=== PATIENT | male | born 1975 | race Caucasian/White ===

== ENCOUNTER 2018-12-07 14:34 | Emergency (ER) | payer MEDICARE, MEDICAID ==
[2018-12-07] MEDS ORDERED: ACETAMINOPHEN 325 MG TAB PO ONE (14:48)
--- NOTE | 2018-12-07 14:54 | Emergency Department Record ---
History of Present Illness - General Chief complaint: Extremity Problem Stated complaint: RT WRIST PAIN Time Seen by Provider: 12/07/18 14:42 Source: Patient Mode of Arrival: Ambulatory Limitations: No limitations - History of Present Illness Initial comments: The patient is here due to R wrist pain. He has had some pain for about 2 months in the R wrist since falling on the arm. The patient has seen his PCP for it and had 2 sets of neg xrays. An hour ago he was just pulling up his pants and he felt a "snap" and pain in the wrist. Since he has not been able to move the wrist without severe pain. The patient denies any trauma today. MD Complaint: Extremity pain Onset/Timin -: Hour(s) Location: Right, Other History of Same: No Radiation: None Severity scale (1-10): 8 Quality: Burning, Other Consistency: Constant Improves with: Immobilization Worsens with: Exertion, Palpation Associated Symptoms: Denies other symptoms - Related Data Home Medications Medication Instructions Recorded Confirmed Last Taken Hydrochlorothiazide [Hctz] 25 mg PO DAILY 12/07/18 12/07/18 Unknown Levothyroxine Sodium 50 mcg PO DAILY 12/07/18 12/07/18 Unknown Lisinopril 10 mg PO DAILY 12/07/18 12/07/18 Unknown Metoprolol Succinate [Toprol Xl] 25 mg PO DAILY 12/07/18 12/07/18 Unknown Allergies Allergy/AdvReac Type Severity Reaction Status Date / Time cortisone Allergy HIVES Verified 12/07/18 14:45 gabapentin [From Neurontin] Allergy BEHAVIORAL Verified 12/07/18 14:45 CHANGES Travel Screening - Travel/Exposure Within Last 30 Days Have you traveled within the last 30 days?: No Review of Systems Constitutional: Denies: Chills, Fever Eyes: Denies: Eye discharge ENT: Denies: Congestion Respiratory: Denies: Cough, Dyspnea Past Medical History - SOCIAL HISTORY Smoking Status: Former smoker Alcohol Use: None Drug Use: None - RESPIRATORY Hx Respiratory Disorders: No - CARDIOVASCULAR Hx Cardio Disorders: Yes Hx Hypertension: Yes - NEURO Hx Neuro Disorders: No - GI Hx GI Disorders: No - Hx Genitourinary Disorders: No - ENDOCRINE Hx Endocrine Disorders: No - MUSCULOSKELETAL Hx Musculoskeletal Disorders: Yes - PSYCH Hx Psych Problems: No - HEMATOLOGY/ONCOLOGY Hx Hematology/Oncology Disorders: No Family Medical History Any Significant Family History?: No Physical Exam - General General Appearance: Alert, Oriented x3, Cooperative, No acute distress - Head Head exam: Atraumatic, Normocephalic, Normal inspection - Eye Eye exam: Normal appearance, PERRL, EOMI - Extremities Extremities exam: Normal capillary refill, Tenderness (There is diffuse dorsal wrist tenderness.), Other (The R hand is NVI with normal pulses.). negative: Normal inspection (There may be very slight swelling to the dorsal wrist. ), Full ROM (There is decreased active and passive ROM due to pain but the patient is able to flex and extend the wrist and fingers with discomfort.) Course Vital Signs 12/07/18 14:39 Temperature 97.8 F Pulse Rate 63 Respiratory 20 Rate Blood Pressure 165/97 Pulse Ox 97 - Reevaluation(s) Reevaluation #1: The patient is doing very well at this time. I did discuss the neg xrays with the patient and the need for F/U. He is to wear a wrist splint and he has an appointment with a specialist on Tuesday. 12/07/18 15:35 Medical Decision Making - Data Complexity MDM Data: X-Ray Ordered and/or Reviewed - Radiology Data Radiology results: Report reviewed (R wrist: Neg per Rad.) Disposition Disposition: Discharge Clinical Impression: Wrist pain, right Disposition: Home, Self-Care Condition: (2) Stable Instructions: Wrist Injury (ED) Additional Instructions: Please take your home pain medicines and ice and elevate the wrist when possible. Please wear the splint during the day and please keep the appointment with your wrist specialist for Tuesday as planned. Forms: Patient Portal Access Time of Disposition: 15:37 Quality - Quality Measures Quality Measures: N/A - Blood Pressure Screening View Details: Yes Does Patient Have Any of the Following: Active Dx of HTN Blood Pressure Classification: Hypertensive Reading Systolic Measurement: 165 Diastolic Measurement: 97 Screening for High Blood Pressure: Patient Exclusion, Hx of HTN [[id number]]
--- NOTE | 2018-12-08 14:50 | RADIOLOGY REPORT ---
EXAM: RIGHT WRIST HISTORY: RIGHT WRIST PAIN STATUS POST FALL. PAIN AT THE NAVICULAR. TECHNIQUE: Four views of the right wrist were obtained. Comparison: None. FINDINGS: There is a negative ulnar variance. There are minor arthritic changes at the first carpal metacarpal joint. The bones and joints are otherwise normal. There is no visible acute fracture or dislocation. There is mild soft tissue swelling surrounding the wrist. IMPRESSION: 1. NO ACUTE FRACTURE IDENTIFIED. 2. NEGATIVE ULNAR VARIANCE. 3. MINOR ARTHRITIC CHANGES AT THE FIRST CARPAL METACARPAL JOINT. JOB NUMBER: [id number] MTDD
== END 2018-12-07 15:47 | disposition home or self-care (01) ==
LOC: ER 14:34
DX: G89.11 Acute pain due to trauma (principal); M25.531 Pain in right wrist; X50.0XXA Overexertion from strenuous movement or load, initial encounter; I10 Essential (primary) hypertension
CPT/HCPCS: 99283